=== PATIENT | female | born 1965 | race Caucasian/White ===

== ENCOUNTER 2020-04-16 22:32 | Inpatient (IN) | payer OTHER ==
[~2020-04-16] VITALS: Ht 167.6 cm; Wt 67.6 kg
--- NOTE | ~2020-04-16 | CON ---
[address] [address] CONSULTATION Name: TREVON MARCUS Room: [address] ADM IN M.R.#: [id number] Admission: 04/17/20 Attend Phys: Cholo Leon MD Discharge: Date of : 65 Report #: [id number] THIS REPORT FOR: cc: FAM - Family physician unknown FAM - Family physician unknown ~ Eliezer Fuentes MD DATE OF SERVICE: 04/17/2020 HISTORY OF PRESENT ILLNESS: This is a 54-year-old female patient who was evaluated by me to prognosticate for hypoxic encephalopathy. The patient had a cardiac arrest. The patient is not able to provide any history because she is intubated. I reviewed the records and it would appear that a cardiac arrest was with ventricular fibrillation. She was successfully resuscitated. She was intubated, but then she started waking up. She did have chest pain before this happened and she collapsed. Even in the short time, this patient has been here, she has improved neurologically. REVIEW OF SYSTEMS: A 14-point review of system was carried out, but very poor history in this patient because of the circumstances summarized in other consultants' notes. Rest of the history is attempted, but it is very poor. PAST MEDICAL HISTORY: Negative for any stroke as the best I can tell. SOCIAL HISTORY: Again from the record, it looks like that this patient has a history of smoking. The cause of the patient's cardiac arrest is not clear yet. PHYSICAL EXAMINATION: Limited examination, which was carried out today indicate that the patient was intubated, but her eyes were open. She can follow simple command. She was able to move her eyes in multiple directions. She was able to move both sides. When I asked her to show me the same fingers I am raising with her hand, she was able to do that, so she was fairly appropriate the best I can tell. I reviewed the record and it looks like a cardiac catheterization was pretty much unremarkable. Her blood pressure is 98/52, pulse was 95, temperature is [address] and I reviewed the CT that she did have on admission and that did show a scalp hematoma. I do not think that they did any workup of the cervical spine that time. It is not possible for me to tell whether she is having any cervical spine symptoms or not, but she was moving all 4 extremities. IMPRESSION: Neurological consultation was requested to prognosticate this patient after hypoxic encephalopathy and we will confine ourselves to that. From that perspective, she appears to be doing pretty well. My plan was to await extubation and then carry out a good neurological examination and then decide about what if any further neurological testing is needed to evaluate for hypoxic encephalopathy depending upon that exam. [place] [address] CONSULTATION Name: ANGELINETREVON M Room: [address] IN ..#: [id number] Admission: 04/17/20 Attend Phys: Cholo Leon MD Discharge: Date of : 65 Report #: [id number] scalp hematoma and I do not think she was very responsive when she came in, but I do not see any cervical spine workup, which was done. Depending upon her symptoms and exam, her spine may have to be cleared. Thank you very much for this referral and if you have any question, please feel free to contact. Dr. Owen will follow up this patient with you from tomorrow. By: 1925 [id number] Fuentes MD /nt
[2020-04-16 22:40] VITALS: BP 152/102
[2020-04-16 23:13] LABS: ABSOLUTE BASOPHILS 0.1 thou/uL (0.0-0.2); ABSOLUTE EOSINOPHILS 0.2 thou/uL (0.0-0.7); ABSOLUTE LYMPHOCYTES 5.5 thou/uL (0.8-5.3); ABSOLUTE MONOCYTES 0.8 thou/uL (0.0-1.2); ABSOLUTE NEUTROPHILS 6.1 thou/uL (1.6-8.1); BASOPHILS 0.6 %; EOSINOPHILS 1.3 %; HEMATOCRIT 41.2 % (37.0-47.0); HEMOGLOBIN 13.5 gm/dL (12.0-15.0); LYMPHOCYTES 43.6 %; MCHC 32.8 g/dL (28.0-37.0); MCV 97.8 fL (80.0-100.0); MPV 7.1 fl. (7.2-11.1); NUCLEATED RBCS 0 /100WBC; PLATELET COUNT* 297 thou/uL (150-400); POLYS 48.5 %; RBC 4.21 mil/uL (4.20-5.00); RDW-CV 13.6 % (10.5-14.5); WBC 12.7 thou/uL (4.0-11.0)
[2020-04-16 23:18] LABS: CALCIUM 8.1 mg/dL (8.5-10.1); CREATININE 0.9 mg/dL (0.6-1.3)
[2020-04-16 23:25] LABS: ALBUMIN 3.6 g/dL (3.4-5.0); MAGNESIUM 2.1 mg/dL (1.8-2.4); TOTAL BILIRUBIN 0.3 mg/dL (<0.1-1.0)
[2020-04-17] VITALS (39 sets, daily range): BP systolic 81–128; BP diastolic 41–74
[2020-04-17 00:11] LABS: BE -8.9 mmol/L (-2 to +3); PCO2 36.8 mmHg (35.0-45.0)
[2020-04-17 00:14] LABS: pH 7.283 (7.340-7.450)
[2020-04-17 00:15] LABS: PO2 404.1 mmHg (75.0-100.0)
[2020-04-17 00:59] LABS: URINE BILIRUBIN NEGATIVE (Negative); URINE BLOOD 1+ (Negative); URINE CLARITY CLEAR; URINE COLOR YELLOW; URINE GLUCOSE-RANDOM NEGATIVE (Negative); URINE KETONES TRACE (Negative); URINE LEUKOCYTES-REFLEX NEGATIVE (Negative); URINE NITRITE-REFLEX NEGATIVE (Negative); URINE PROTEIN 2+ (Negative); URINE SPECIFIC GRAVITY 1.025 (1.005-1.030); URINE UROBILINOGEN 0.2 E.U./dl (0.2-1.0)
[2020-04-17 01:06] LABS: BACTERIA-REFLEX None Seen /HPF (None Seen); CRYSTALS None Seen /LPF (None Seen); HYALINE CASTS 0-3 Few /LPF (None Seen); SQUAMOUS 4-10 Moderate /LPF (0-3); URINE RBC 3-10 Few /HPF (0-2); URINE WBC-REFLEX 0-5 Rare /HPF (0-5)
[2020-04-17 01:08] LABS: AMP/METHAMP Negative (Negative); BARBITURATES Negative (Negative); BENZODIAZEPINES Negative (Negative); COCAINE Negative (Negative); METHADONE Negative (Negative); OPIATES Negative (Negative); PCP Negative (Negative); THC POSITIVE (Negative)
--- NOTE | 2020-04-17 07:43 | NUR ---
RECEVED REPORT FROM ER NURSE TONG AT 0220. PATIENT BROUGHT TO UNIT AROUND 0255. PATIENT WAS INTUBATED IN THE ED AND CAME TO THE UNIT WITH A PROPOFOL DRIP RUNNING. ASSESSMENTS COMPLETED CHARTED. PATIENT RESTLESS AND AGITATED ON VENT, PULMONOLOGY NOTIFIED. NEW ORDERS RECEIVED AND FOLLOWED. MEDICATIONS GIVEN, SEE EMAR FOR DETAILS. HOURLY ROUNDING IN PLACE FOR PATIENT SAFETY. FALL PRECAUTIONS IN PLACE FOR PATIENT SAFETY. BED LOCKED AND IN LOWEST POSITION.
[2020-04-17 09:44] LABS: CALCIUM 7.3 mg/dL (8.5-10.1); CREATININE 0.6 mg/dL (0.6-1.3); MAGNESIUM 1.4 mg/dL (1.8-2.4); POTASSIUM 3.5 mmol/L (3.5-5.1)
[2020-04-17 10:01] LABS: CHOLESTEROL 157 mg/dL (<200); HDL CHOLESTEROL 98 mg/dL (>40); LDL CHOLESTEROL 49 mg/dL (<100); SERUM ASSESSMENT Clear; TC:HDL 1.6 Ratio (Not establshd); TRIGLYCERIDE 52 mg/dL (<150); VLDL 10 mg/dL (<40)
[2020-04-17 10:32] LABS: APTT 21.4 Seconds (25.0-31.3); PROTIME 10.6 Seconds (9.20-11.50)
--- NOTE | 2020-04-17 11:33 | EKG ---
[place] [address] ELECTROCARDIOGRAM REPORT Name: TREVON MARCUS Room: [address] ADM IN .R.#: [id number] Admission: 04/17/20 Attend Phys: Cholo Leon, Discharge: Date of : 65 Date of Service: 04/17/20 0134 Report #: [id number] THIS REPORT FOR: //name// [facility] ED Test Date: 2020-04-17 Test Time: 01:34:59 Pat Name: TREVON MARCUS Department: Room: [facility] Gender: F Physical Security Manager: ROBBIE : 1965 Requested By: Екатерина Rosenbaum Order Number: [id number] MD: Olman Faria Measurements Intervals [place] Rate: 108 P: 77 WA: 138 QRS: 66 QRSD: 83 T: 57 QT: 364 QTc: 488 Interpretive Statements Sinus tachycardia RSR' in V1 or V2, probably normal variant Borderline prolonged QT interval Compared to ECG 04/16/2020 22:35:28 Early repolarization no longer present Possible ischemia no longer present Electronically Signed On 04-17-2020 11:33:20 UX DEVELOPER DESIGNER by Olman Faria [email or web address] <ELECTRONICALLY SIGNED> By: Olman Faria MD, [facility] 04/17/20 1133 3 Olman Faria MD, FAC /EPI
--- NOTE | 2020-04-17 13:18 | NUR ---
PT TRANSFERRED TO MRI VIA W/C. PER DR OGDEN, SENIOR ENGINEERING TECHNICIAN DOES NOT NEED TO ACCOMPANY PT TO MRI DUE TO HER CONSISTENTLY STABLE CONDITION.
[2020-04-17 13:34] LABS: BE -1.3 mmol/L (-2 to +3); PCO2 41.9 mmHg (35.0-45.0); PO2 75.5 mmHg (75.0-100.0); pH 7.374 (7.340-7.450)
--- NOTE | 2020-04-17 14:32 | CARD ---
[address] [address] CARDIAC CATH REPORT Name: TREVON MARCUS Room: [address] IN [facility].#: [id number] Admission: 04/17/20 Attend Phys: Cholo Leon MD Discharge: Date of : 65 Report #: [id number] THIS REPORT FOR: cc: FAM - Family physician unknown FAM - Family physician unknown ~ Olman Faria MD [facility] APPROVED REPORT Study performed: 04/17/2020 10:12:20 Patient Details Patient Status: In-Patient Room #: The patient is a 54 year-old female Event Personnel Olman Faria Associate Field Service Engineer, Evelia Dawson RN Hog Slaughterer, Umesh Mercedes RN Hog Slaughterer, Carl Nicolas RTR Scrub, Winnie Ortiz RTR Monitor Procedures Performed Art Access - R femoral artery, Left Heart Cath w/or w/o Coronaries LHC, Hemostasis w/ Mynx Indication Non-STEMI Procedure Narrative The patient was brought urgently to the Cardiac Catheterization Laboratory and was prepped and draped in a sterile manner. The right femoral was infiltrated with 2% Lidocaine subcutaneous anesthesia. A [place] 6 FR sheath was inserted into the right femoral artery. Coronary angiography was performed using coronary diagnostic catheters. The right coronary system was accessed and visualized with a 6F JR4 catheter. The left coronary system was accessed and visualized with a 6F JL4 catheter. The left ventricle was accessed and visualized with a 6F Pigtail catheter. Left ventricular/Aortic Valve gradient assessed via catheter pullback. Pre-demployment femoral angiogram was performed . Closure device was deployed with a 6 Fr Mynx. The patient tolerated the procedure well and there were no complications associated with the procedure. There was no hematoma. Intraoperative Conscious Sedation Sedation start time: 10:50 Case end Time: 11:04 [place] [address] CARDIAC CATH REPORT Name: ANGELINETREVON Room: [address] IN ..#: [id number] Admission: 04/17/20 Attend Phys: Cholo Leon MD Discharge: Date of : 65 Report #: [id number] No conscious sedation given. Patient on a vent. Fluoro Time: 2.2 minutes Dose: DAP 04737 cGycm2 159 mGy Contrast Type and Amount: Visipaque 40 ml Coronary Angiography The patient's coronary anatomy is right dominant. Diagnostic Cath Left Main 0% narrowing LAD 0% narrowing Circumflex 0% narrowing Right Coronary Dominant vessel with 0% narrowing Left Ventriculography Left Ventriculography was not performed. Hemodynamics The aortic pressure is 89/47 mmHg with a mean of 59 mmHg. The left ventricular pressure is 89/-9 mmHg with a mean of mmHg. The left ventricular end diastolic pressure is 12 mmHg. There was no gradient across the aortic valve upon pullback. Conclusion 1. Normal coronary arteries 2. Normal left-sided hemodynamic study Recommendations Medical Therapy <ELECTRONICALLY SIGNED> By: Olman Faria MD, [facility] 04/17/201431 31 143Joashish Faria MD, FAC /INF
--- NOTE | 2020-04-17 15:34 | NUR ---
ICU rounds: Pt being extubated. CM to attempt to assess later
--- NOTE | 2020-04-17 16:04 | 2DMMODE ---
[place] [address] 2 D/M-MODE ECHOCARDIOGRAM Name: TREVON MARCUS Room: [address] IN [facility]#: [id number] Admission: 04/17/20 Attend Phys: Cholo Leon, Discharge: Date of : 65 Date of Service: 04/17/20 1604 Report #: [id number] THIS REPORT FOR: cc: FAM - Family physician unknown FAM - Family physician unknown Olman Faria MD [facility] ~ APPROVED REPORT Study performed: 04/17/2020 14:17:16 EXAM: Comprehensive 2D, Doppler, and color-flow Echocardiogram Patient Location: In-Patient Room #: [facility] Status: routine BSA: 1.76 HR: 102 bpm BP: 98/67 mmHg Rhythm: NSR Other Information Study Quality: Good Indications cardiac arrest post cath 2D Dimensions IVSd: 7.89 (7-11mm) LVOT Diam: 18.85 (18-24mm) LVDd: 41.74 mm PWd: 7.85 (7-11mm) Ascending Ao: 31.01 (22-36mm) LVDs: 27.92 (25-40mm) Aortic Root: 31.44 mm Volumes Left Atrial Volume (Systole) LA ESV Index: 15.60 mL/m2 Aortic Valve AoV Peak Carlos.: 1.48 m/s AO Peak Gr.: 8.75 mmHg LVOT Max P.66 mmHg AO Mean Gr.: 5.59 mmHg LVOT Mean P.87 mmHg LVOT Max V: 1.38 m/s AO V2 VTI: 26.41 cm LVOT Mean V: 0.90 m/s KELVIN (VTI): 2.87 cm2 LVOT V1 VTI: 27.20 [place] [address] 2 D/M-MODE ECHOCARDIOGRAM Name: TREVON MARCUS Room: [address] IN ..#: [id number] Admission: 04/17/20 Attend Phys: Cholo Leon, Discharge: Date of : 65 Date of Service: 04/17/20 1604 Report #: [id number] Mitral Valve E/A Ratio: 1.17 MV Decel. Time: 207.19 ms MV E Max Carlos.: 0.90 m/s MV PHT: 60.09 ms MVA (PHT): 3.66 cm2 TDI E/Lateral E': 6.00 E/Medial E': 6.92 Medial E' Carlos.: 0.13 m/s Lateral E' Carlos.: 0.15 m/s Pulmonary Valve PV Peak Carlos.: 1.00 m/s PV Peak Gr.: 3.99 mmHg Tricuspid Valve RAP Estimate: 5.00 mmHg TR Peak Gr.: 22.33 mmHg RVSP: 27.00 mmHg PA Pressure: 27.00 mmHg Left Ventricle The left ventricle is normal size. There is normal LV segmental wall motion. There is normal left ventricular wall thickness. Left ventricular systolic function is normal. The left ventricular ejection fraction is within the normal range. LVEF is 60%. The left ventricular diastolic function is normal. Right Ventricle The right ventricle is normal size. The right ventricular systolic function is normal. Atria The left atrium size is normal. The right atrium size is normal. Aortic Valve The aortic valve is normal in structure. No aortic regurgitation is present. There is no aortic valvular stenosis. Mitral Valve The mitral valve is normal in structure. There is no mitral valve regurgitation noted. No evidence of mitral valve stenosis. Tricuspid Valve The tricuspid valve [place] [address] 2 D/M-MODE ECHOCARDIOGRAM Name: TREVON MARCUS Room: [address] IN [facility]#: [id number] Admission: 04/17/20 Attend Phys: Cholo Leon, Discharge: Date of : 65 Date of Service: 04/17/20 1604 Report #: [id number] regurgitation. No pulmonary hypertension. Pulmonic Valve The pulmonary valve is normal in structure. There is no pulmonic valvular regurgitation. Great Vessels The aortic root is normal in size. IVC is normal in size and collapses >50% with inspiration. Pericardium There is no pericardial effusion. <Conclusion> The left ventricle is normal size. There is normal left ventricular wall thickness. Left ventricular systolic function is normal. The left ventricular ejection fraction is within the normal range. LVEF is 60%. The left ventricular diastolic function is normal. The right ventricle is normal size. The right ventricular systolic function is normal. The left atrium size is normal. The aortic valve is normal in structure. The mitral valve is normal in structure. The tricuspid valve is normal in structure. IVC is normal in size and collapses >50% with inspiration. There is no pericardial effusion. There is normal LV segmental wall motion. <ELECTRONICALLY SIGNED> By: Olman Faria MD, FACC 04/17/20 1604 1604 1604 Olman Faria MD, FACC /INF
--- NOTE | 2020-04-17 16:12 | EKG ---
[place] [address] ELECTROCARDIOGRAM REPORT Name: TREVON MARCUS Room: [address] ADM IN M.R.#: [id number] Admission: 04/17/20 Attend Phys: Cholo Leon, Discharge: Date of : 65 Date of Service: 04/16/205 Report #: [id number] THIS REPORT FOR: //name// [facility] ED Test Date: 2020-04-16 Test Time: 22:35:28 Pat Name: TREVON MARCUS Department: Room: [address] Gender: F Nurses' Aide: RI : 1965 Requested By: Cholo Leon Order Number: [id number] [id number] MD: Olman Faria Measurements Intervals [place] Rate: 131 P: 86 MT: 133 QRS: 57 QRSD: 87 T: QT: 336 QTc: 496 Interpretive Statements Sinus tachycardia RSR' in V1 or V2, probably normal variant Nonspecific ST-T abnormalities No previous ECG available for comparison Electronically Signed On 04-17-2020 16:12:29 MACHINE EDGE BANDER by Olman Faria [email or web address] <ELECTRONICALLY SIGNED> By: Olman Faria MD, [facility] 04/17/20 1612 Olman Faria MD, [facility] /EPI
--- NOTE | 2020-04-17 18:52 | NUR ---
VSS. CARDIAC CATH THIS MORNING SHOWED NO CAD OR OCCLUSION; R GROIN DRSG REMAINS C/D/I WITH NO BRUISING OR HEMATOMA. TTT PERFORMED THIS AFTERNOON, EXTUBATED AT 1435 TO 2L O2 PER NC. PT A/Ox4, FORGETFUL BUT CALM AND COOPERATIVE. ECHO TODAY, EF 60%. MAG & K REPLACED PER DR CASTELLANO ORDERS. TO HAVE BEDSIDE SWALLOW @ 1930 AFTER WHICH PT CAN HAVE REGULAR DIET IF NO S/S ASPIRATION APPRECIATED. AT BEDSIDE MUCH OF THE DAY, ALL QUESTIONS ANSWERED AND EDUCATION PROVIDED PERTAINING TO PT CONDITION, MEDICATIONS, AND MEDICAL EQUIPMENT. CALL LIGHT WITHIN REACH.
[2020-04-17 19:41] LABS: CALCIUM 6.6 mg/dL (8.5-10.1); CREATININE 0.5 mg/dL (0.6-1.3); MAGNESIUM 2.9 mg/dL (1.8-2.4); POTASSIUM 3.9 mmol/L (3.5-5.1)
--- NOTE | 2020-04-17 21:21 | CON ---
[address] [address] CONSULTATION Name: TREVON MARCUS Room: [address] IN .R.#: [id number] Admission: 04/17/20 Attend Phys: Cholo Leon MD Discharge: Date of : 65 Report #: [id number] THIS REPORT FOR: cc: FAM - Family physician unknown FAM - Family physician unknown ~ De Beverly MD DATE OF SERVICE: 04/17/2020 Consult has been requested by Dr. Collado. REASON FOR CONSULTATION: Acute respiratory failure following a cardiac arrest/ventilator management. HISTORY OF PRESENT ILLNESS: This is a 54-year-old female, she does not have a previous history of respiratory disease; however, as noted below, the patient does have an extensive history of smoking and her chest x-ray is highly consistent with COPD, but she has not been previously diagnosed. The patient also is reported to regularly use alcohol. It is not known to me as to whether her alcohol use is excessive or not. The patient is reported to have had 3 glasses of wine yesterday. Subsequent to this, she was complaining of chest pain and reported to have had the feeling like she needed to burp. The patient had subsequently collapsed. Family members had started CPR and called EMS. The patient was brought to the Emergency Room, spontaneously breathing at a rate of 4-6 breaths per minute, but she was being assisted with an Ambu bag and oral airway in place. The patient is reported to have vomited and aspirated. She was endotracheally intubated in the Emergency Room. The patient is also reported to have had food particles suctioned out of the endotracheal tube. Overnight, the patient initially was sedated with propofol. She, however, was not adequately sedated and therefore, I did add a fentanyl drip when I was called during the night as well as p.r.n. Versed. The patient's blood pressure was on the lower side, which she was hemodynamically stable. This morning, when I was asked to review for possible extubation, the patient was noted to have a potassium of 3.0, which has been replaced. Therefore, I decided to proceed with repeat BMP and we have since then been replacing her potassium and magnesium. The Cardiology Service also requested that she be kept on the ventilator till the cardiac catheterization is performed. I have been verbally told that this has now been performed and that the coronaries were clean, although the troponin I was significantly elevated. The patient is now okay for possible extubation per the Cardiology Service. The patient is on the ventilator and therefore is unable to provide a further history [place] [address] CONSULTATION Name: TREVON MARCUS Room: [address] IN M.R.#: [id number] Admission: 04/17/20 Attend Phys: Cholo Leon MD Discharge: Date of : 65 Report #: [id number] PAST MEDICAL HISTORY: There is no known past medical history. ALLERGIES: No known drug allergies. CURRENT MEDICATIONS: The list is in [facility] and this is reviewed. FAMILY HISTORY: No pertinent family history known at this time. PHYSICAL EXAMINATION: GENERAL: The patient is awake when sedation is lowered, currently sedated to around VAS -2 with propofol at 50 and fentanyl at 50, has also recently received Versed for cardiac catheterization. VITAL SIGNS: Her pulse is 90, blood pressure is 84/55. She is saturating 100%. She is on assist control mode of ventilation, 5 of PEEP, tidal volume is 500. She is overbreathing the ventilator in the low 20s. She has a low-grade fever of 37.9 this morning. HEENT: Head is normocephalic and atraumatic. Pupils are equal and reactive. Endotracheal tube was in good position. NECK: Does not show raised JVP, asymmetry, mass or lymph nodes. CHEST: Symmetrical expansion on inspection and palpation. On auscultation, chest is clear. HEART: Regular. There is no murmur. ABDOMEN: Soft and nontender. EXTREMITIES: Lower extremities show no edema, no calf tenderness. SKIN: Dry and intact. NEUROLOGICAL: Moves all extremities bilaterally equally and spontaneously with no focal deficit identified. LABORATORY DATA: The patient's arterial blood gas from this morning does show a significant metabolic acidosis. The patient's CBC as well as chemistries from this morning are as described above. A repeated BMP and mag is also as discussed above. Coagulation studies in [facility] reviewed. She was positive for marijuana as well. Alcohol level was 125 upon presentation. Urinalysis shows minor abnormalities only and is in [facility] reviewed. ASSESSMENT AND PLAN: 1. Acute hypoxemic respiratory failure following a cardiac arrest. At this time, I would back off on the propofol infusion and once the patient is awake and provided she is hemodynamically stable, plan is to proceed with a weaning trial and then assess for possible extubation. 2. Cardiac arrest/non-ST segment myocardial infarction. I would defer to the Cardiology Service. I understand that per verbal report, there were no major abnormalities in her cardiac catheterization in the coronary arteries. Echo is awaited, we will need to look at the EF. [address] [address] CONSULTATION Name: TREVON MARCUS Room: [address] IN [facility].#: [id number] Admission: 04/17/20 Attend Phys: Cholo Leon MD Discharge: Date of : 65 Report #: [id number] 3. Hypotension/metabolic acidosis. After the planned weaning trial, I will plan to do an ABG. In case we are unable to do the weaning trial, we will go ahead and do the ABG and then reassess this. Meanwhile from a respiratory point of view, the patient should be able to tolerate more fluids, therefore continue IV Fluids, these could be discontinued later if the patient is taking orally and has normal blood pressures. In case the patient remains hypotensive once we back off on the propofol or if her urine output remains low, then it is my intension to give her more IV fluids. 4. Aspiration pneumonitis. We will obtain a sputum culture and then we will start Unasyn. If the patient later on is taking orally, we will switch this over to Augmentin. Plan to treat for 5-7 days. 5. Chronic obstructive pulmonary disease. The patient's chest x-ray is consistent with chronic obstructive pulmonary disease. She does not previously have this diagnosis, will need outpatient evaluation. Recommend smoking cessation as well. Considering that she just had an acute cardiac event, I did not order scheduled breathing treatments. I will follow and add therapy as indicated. 6. Elevated liver function enzymes. This appears to be related to acute myocardial infarction as well as hypotension. I will keep her well hydrated for now as above. Defer cardiac management to the Cardiology Service. 7. Past medical history of smoking. See discussion above. 8. History of alcohol intake. The patient took 3 glasses of wine yesterday; however, her baseline alcohol intake is not known to me. We will watch for withdrawal. I would defer to the primary service whether there is an indication to give her thiamine and folate. 9. Deep venous thrombosis prophylaxis. Defer to the Cardiology Service. She has been on IV heparin. 10. Gastrointestinal prophylaxis. For now, I ordered famotidine. Considering that she did have some upper GI complaints, potentially if there is no interaction with cardiac medications, this could be switched over to Protonix as well. The patient is critically ill at this time. Total time spent providing critical care to this patient today is 46 minutes. <ELECTRONICALLY SIGNED> By: De Beverly MD 04/17/20 2121 1232 1330De Beverly MD /nt
[2020-04-18] VITALS (25 sets, daily range): BP systolic 100–119; BP diastolic 54–79
[2020-04-18 04:21] LABS: HEMATOCRIT 32.3 % (37.0-47.0); MCH 32.2 pg (26.0-34.0); MCHC 33.5 g/dL (28.0-37.0); MCV 96.1 fL (80.0-100.0); MPV 7.1 fl. (7.2-11.1); NUCLEATED RBCS 0 /100WBC; RBC 3.36 mil/uL (4.20-5.00); RDW-CV 13.5 % (10.5-14.5)
[2020-04-18 04:28] LABS: HEMOGLOBIN 10.8 gm/dL (12.0-15.0); PLATELET COUNT* 210 thou/uL (150-400)
[2020-04-18 04:34] LABS: ALBUMIN 2.8 g/dL (3.4-5.0); CALCIUM 7.7 mg/dL (8.5-10.1); CREATININE 0.5 mg/dL (0.6-1.3); MAGNESIUM 2.4 mg/dL (1.8-2.4); POTASSIUM 3.6 mmol/L (3.5-5.1); TOTAL BILIRUBIN 0.5 mg/dL (<0.1-1.0); TOTAL PROTEIN 5.8 g/dL (6.4-8.2)
[2020-04-18 07:32] LABS: ABSOLUTE BASOPHILS 0.2 thou/uL (0.0-0.2); ABSOLUTE EOSINOPHILS 0.2 thou/uL (0.0-0.7); ABSOLUTE LYMPHOCYTES 1.1 thou/uL (0.8-5.3); ABSOLUTE MONOCYTES 0.4 thou/uL (0.0-1.2); ABSOLUTE NEUTROPHILS 16.2 thou/uL (1.6-8.1); HYPOCHROMASIA 1+; PLATELET ESTIMATE ADEQUATE
[2020-04-18] MEDS ORDERED: EFFEXOR XR75 MG PO (09:26)
[2020-04-18] MEDS ORDERED: MELATONIN10 M1 PO (09:28)
--- NOTE | 2020-04-18 11:14 | NUR ---
0730 ASSUMED CARE OF PATIENT. PLEASE SEE DOCUMENTED ASSESSMENT. PT IS TELE STATUS IN THE ICU. ON ROOM AIR WITH CONGESTED COUGH.
--- NOTE | 2020-04-18 13:19 | NUR ---
ICU rounds: Tele status. Anticipate dc in 1-[address] [facility] today, Pt regular diet. in room at bedside. Pt normally independent. No DME. No hx of HH or SNF. Goal is home, no needs anticipated.
--- NOTE | 2020-04-18 15:39 | NUR ---
TEMP 101. DR NELSON NOTIFIED. TYLENOL GIVEN. VENOUS DOPPLERS NOW IN PROGRESS.PT TO TRANSFER TO ROOM 230
--- NOTE | 2020-04-18 15:55 | NUR ---
REPORT CALLED TO TRUNG. PT TO ROOM 230. PT AND SPOUSE INFORMED.
--- NOTE | 2020-04-18 16:27 | NUR ---
PT TRANSFERRED TO ROOM 219 PER WHEELCHAIR WITH ALL RECORDS AND BELONGINGS
--- NOTE | 2020-04-18 18:52 | NUR ---
NSG NOTE ARRIVED FROM ICU AROUND 1600 HRS. A/O WITH FORGETFULNESS. NOT IN DISTRESS AND WITHOUT PAIN,DISCOMFORT OR SOA. GCS=15. FC. SHANKAR. SBA. AT BEDSIDE. VSS. SR WITH PVCS PER TRACK MACHINE OPERATOR REPAIRER. TOLERATES PO. HAS NO COMPLAINTS. SEE ASSESSMENTS FOR FURTHER DETAILS. WILL CONT TO MONITOR.
[2020-04-19 04:32] VITALS: BP 104/58
[2020-04-19 05:06] LABS: ABSOLUTE BASOPHILS 0.1 thou/uL (0.0-0.2); ABSOLUTE EOSINOPHILS 0.1 thou/uL (0.0-0.7); ABSOLUTE LYMPHOCYTES 1.4 thou/uL (0.8-5.3); ABSOLUTE NEUTROPHILS 11.6 thou/uL (1.6-8.1); BASOPHILS 0.4 %; EOSINOPHILS 0.9 %; HEMATOCRIT 29.2 % (37.0-47.0); HEMOGLOBIN 9.9 gm/dL (12.0-15.0); LYMPHOCYTES 9.6 %; MCH 32.8 pg (26.0-34.0); MCHC 33.9 g/dL (28.0-37.0); MCV 96.6 fL (80.0-100.0); MONOCYTES 6.8 %; MPV 7.6 fl. (7.2-11.1); NUCLEATED RBCS 0 /100WBC; PLATELET COUNT* 195 thou/uL (150-400); POLYS 82.3 %; RBC 3.02 mil/uL (4.20-5.00); RDW-CV 13.5 % (10.5-14.5); WBC 14.1 thou/uL (4.0-11.0)
[2020-04-19 06:39] LABS: ALBUMIN 2.8 g/dL (3.4-5.0); CALCIUM 7.8 mg/dL (8.5-10.1); CREATININE 0.5 mg/dL (0.6-1.3); POTASSIUM 3.8 mmol/L (3.5-5.1); TOTAL BILIRUBIN 0.7 mg/dL (<0.1-1.0); TOTAL PROTEIN 5.5 g/dL (6.4-8.2)
[2020-04-19 08:00] VITALS: BP 110/63
[2020-04-19 11:09] VITALS: BP 110/63
[2020-04-19 11:41] VITALS: BP 125/67
== END 2020-04-19 13:30 | disposition home or self-care (01) | DRG 280 ==
LOC: M.ERS 22:32 → EDBD 22:32 → M.ICU 04-17 02:10 → M.TBA-ER 04-17 02:10 → M.ICU 04-17 03:06 → M.2W 04-18 16:28
PROVIDERS: Family Medicine; Internal Medicine Critical Care Medicine; Personal Emergency Response Attendant; Registered Nurse; ADMIT Internal Medicine; ATTEND Internal Medicine
PROC: 5A1935Z Respiratory Ventilation, Less than 24 Consecutive Hours (ICD-10-PCS; principal; 2020-04-17)
PROC: B211YZZ Fluoroscopy of Multiple Coronary Arteries using Other Contrast (ICD-10-PCS; principal; 2020-04-17)
PROC: 4A023N7 Measurement of Cardiac Sampling and Pressure, Left Heart, Percutaneous Approach (ICD-10-PCS; principal; 2020-04-17)
PROC: 0BH17EZ Insertion of Endotracheal Airway into Trachea, Via Natural or Artificial Opening (ICD-10-PCS; principal; 2020-04-17)
DX: I25.9 Chronic ischemic heart disease, unspecified (principal); J69.0 Pneumonitis due to inhalation of food and vomit; I21.A1 Myocardial infarction type 2; J96.01 Acute respiratory failure with hypoxia; I46.9 Cardiac arrest, cause unspecified; K72.00 Acute and subacute hepatic failure without coma; E87.2 Acidosis; I95.9 Hypotension, unspecified; J44.9 Chronic obstructive pulmonary disease, unspecified; E87.6 Hypokalemia; F17.210 Nicotine dependence, cigarettes, uncomplicated; F12.90 Cannabis use, unspecified, uncomplicated; Z20.822 Contact with and (suspected) exposure to COVID-19

== ENCOUNTER → 2020-04-23 | Outpatient (CLI) | payer OTHER ==
[~2020-04-23] MED LIST: EFFEXOR XR75 MG PO; MELATONIN10 M1 PO
[2020-04-23 14:50] LABS: HEMATOCRIT 35.5 % (37.0-47.0); HEMOGLOBIN 12.3 gm/dL (12.0-15.0); MCH 33.3 pg (26.0-34.0); MCHC 34.6 g/dL (28.0-37.0); MCV 96.3 fL (80.0-100.0); MPV 6.9 fl. (7.2-11.1); RBC 3.69 mil/uL (4.20-5.00); RDW-CV 13.6 % (10.5-14.5); WBC 8.2 thou/uL (4.0-11.0)
[2020-04-23 15:00] LABS: ALBUMIN 3.1 g/dL (3.4-5.0); CALCIUM 9.6 mg/dL (8.5-10.1); CREATININE 0.6 mg/dL (0.6-1.3); POTASSIUM 4.2 mmol/L (3.5-5.1); TOTAL BILIRUBIN 0.4 mg/dL (<0.1-1.0); TOTAL PROTEIN 7.5 g/dL (6.4-8.2)
== END ==
LOC: M.LAB 14:09
PROVIDERS: ATTEND Registered Nurse
DX: J69.0 Pneumonitis due to inhalation of food and vomit (principal); E87.6 Hypokalemia

== ENCOUNTER → 2020-04-24 | Outpatient (CLI) | payer OTHER ==
[~2020-04-24] VITALS: Ht 162.6 cm; Wt 59.0 kg
[2020-04-24 14:18] VITALS: BP 123/74
[2020-04-24 16:12] VITALS: BP 122/77
[2020-04-24 16:33] VITALS: BP 136/82
[2020-04-24 16:50] VITALS: BP 116/72
[2020-04-24 17:05] VITALS: BP 125/71
[2020-04-24 17:25] VITALS: BP 126/73
--- NOTE | 2020-05-01 12:56 | CARD ---
[address] [address] CARDIAC CATH REPORT Name: TREVON MARCUS Room: [facility]#: [id number] Admission: 04/24/20 Attend Phys: Harvey Alcala MD Discharge: Date of : 65 Report #: [id number] THIS REPORT FOR: cc: Gilda Rosa MD, Jennifer S. MD ~ Harvey Alcala MD [facility] ADDENDUM APPROVED REPORT Study performed: 04/24/2020 13:43:08 Patient Status: Out-Patient Room #: Event Personnel: Harvey Alcala [employer], Tia Omalley RN, Cholo Sanchez Monitor, Winnie Ortiz RTR Scrub Exam: Insertion ICD Indications: Secondary prevention after cardiac arrest. The patient is a 55 year-old female with a history of Dvp-ee-ehtifdym cardiac arrest. Patient Info Last EF%: 60% Date: 04/17/2020 [facility] Heart Class: I Reason for implant: Ventricular Fibrillation Intraoperative Conscious Sedation Sedation start time: 15:08 Case end Time: 15:43 Fentanyl 25 mcg Versed 1 mg Implanted Devices: Medtronic single-chamber ICD, model number DD 3 D4, serial number [id number]. Medtronic pacing ICD lead, model number 9424G08, serial number [id number] Procedure After explaining the risks, benefits, and alternative options, informed consent was obtained from the patient. The patient was brought to the cardiac catheterization lab and the left chest and shoulder were prepped and draped in the usual fashion. During this case, Fluoroscopy and low osmolar contrast were used for imaging. After informed consent was obtained the patient was brought to the interventional radiology lab. The area of the [place] [address] CARDIAC CATH REPORT Name: TREVON MARCUS Room: [facility]#: [id number] Admission: 04/24/20 Attend Phys: Harvey Alcala MD Discharge: Date of : 65 Report #: [id number] and draped in sterile fashion. Local anesthesia was achieved with 1% lidocaine. Next after the area was anesthetized locally a device pocket was formed over the left pectoralis muscle using electrocautery and blunt dissection. Next the left subclavian vein was accessed using a micropuncture kit. Ultimately a tear-away introducer was advanced into the left subclavian vein. A pacing ICD lead was then advanced to a secure position within the right ventricular apex. The lead was secured. Thresholds and sensing were checked and deemed to be satisfactory. The lead was then secured within the device pocket using the designated cuff and 0 silk suture. The device pocket was then flushed. The pacing ICD generator was then attached to the ICD pacing lead. The redundant lead and device were placed within the device pocket. The device pocket was flushed. Deep tissues were closed using interrupted stitches of 2-0 Vicryl. The skin incision was then closed with a single subcuticular stitch of 4-0 Vicryl. Several Steri-Strips were placed across the incision and a sterile Telfa dressing placed. The patient tolerated the procedure well without complication. Complications The patient tolerated the procedure well and there were no complications associated with the procedure. Findings The sensed R wave was 15.7 mV. The pacing ICD lead threshold was 0.5 V at 0.50 ms. Pacing impedance was 802 ohms. Shocking impedance was 69 ohms. Conclusion 1. History of ventricular fibrillation out of hospital arrest. 2. Successful placement of a single-chamber pacing ICD for secondary prevention. Recommendations 1. Follow-up site check in 1 week. 2. Follow-up device interrogation in 1 to 2 months. <ELECTRONICALLY SIGNED> By: Harvey Alcala MD, FACC 05/01/20 [id number] 1256[facility] Alcala MD, FACC /INF
== END | disposition home or self-care (01) ==
LOC: M.CL 12:30
PROVIDERS: ATTEND Internal Medicine Cardiovascular Disease
DX: I46.9 Cardiac arrest, cause unspecified (principal); I49.01 Ventricular fibrillation; I47.2 Ventricular tachycardia; J69.0 Pneumonitis due to inhalation of food and vomit; D50.9 Iron deficiency anemia, unspecified; I45.81 Long QT syndrome; Z98.890 Other specified postprocedural states; Z79.899 Other long term (current) drug therapy; Z87.01 Personal history of pneumonia (recurrent); Z87.891 Personal history of nicotine dependence